=== PATIENT | male | born 1945 | race Caucasian/White ===

== ENCOUNTER → 2017-03-25 | Outpatient (CLI) | payer MEDICARE ==
--- NOTE | 2017-03-25 15:47 | US ---
EXAMINATION TYPE: US kidneys/renal and bladder DATE OF EXAM: 03/25/2017 COMPARISON: NONE CLINICAL HISTORY: Renal Failure N19. EXAM MEASUREMENTS: Right Kidney: 12.8 x 6.3 x 6.0 cm Left Kidney: 13.2 x 6.2 x 5.9 cm Right Kidney: enlarged, there appears to be some parapelvic cysts in addition to hydro, largest cyst measuring 2. 1 x 1.8 x 1.9cm Left Kidney: Severe left-sided hydronephrosis with cortical thinning is noted. Bladder: enlarged, inferior shows irregular area, it is unclear whether this is the prostate or other etiology Patient states he has had surgery on his prostate, but was unsure what type. Bilateral Jets seen: No IMPRESSION: 1. Nodular echogenicity within the posterior inferior urinary bladder may relate to impression from t he prostate gland, however urinary bladder mass is also possible given the submitted images. Direct v isualization is recommended. 2. Moderate right and severe left hydronephrosis with cortical thinning of the left kidney indicating chronicity. Additionally there is trabeculation of the urinary bladder wall and constellation of fin dings may relate to urinary bladder outlet obstruction in this patient with an enlarged and heterogen ous partially visualized prostate gland. A [place] message has been communicated to Gerardo Calhoun MD via the [employer] Result system on 03/25/2017 3:44 PM, Message ID [id number].
== END | disposition home or self-care (01) ==
LOC: RADUSWWP 14:26
PROVIDERS: ATTEND Urology
DX: N13.30 Unspecified hydronephrosis (principal); N32.89 Other specified disorders of bladder
CPT/HCPCS: 76770

== ENCOUNTER → 2017-05-04 | Outpatient (CLI) | payer MEDICARE, OTHER ==
[2017-05-04 11:47] LABS: EKG EKG PERFORMED
[2017-05-04 12:33] LABS: Basophils # (A) 0.1 k/uL (0-0.2); Basophils % (A) 1 %; CH 28.8; CHCM 32.8; Eosinophils # (A) 0.2 k/uL (0-0.7); Eosinophils % (A) 2 %; HCT 38.4 % (39.0-53.0); HDW 3.12; HGB 12.4 gm/dL (13.0-17.5); Luc # (Auto) 0.25; Luc % (Auto) 2; Lymphocytes # (A) 1.9 k/uL (1.0-4.8); Lymphocytes % (A) 16 %; MCH 28.6 pg (25.0-35.0); MCHC 32.4 g/dL (31.0-37.0); MCV 88.2 fL (80.0-100.0); Mean Platelet Volume 6.8; Monocytes # (A) 0.6 k/uL (0-1.0); Monocytes % (A) 5 %; Neutrophils # (A) 9.2 k/uL (1.3-7.7); Neutrophils % (A) 75 %; RBC 4.36 m/uL (4.30-5.90); RDW 13.9 % (11.5-15.5); WBC 12.2 k/uL (3.8-10.6); WBC (Perox) 12.97
[2017-05-04 12:51] LABS: Anion Gap 14 mmol/L; Blood Urea Nitrogen 27 mg/dL (9-20); Calcium 10.4 mg/dL (8.4-10.2); Carbon Dioxide 25 mmol/L (22-30); Chloride 103 mmol/L (98-107); Glucose 100 mg/dL (74-99); Non-African American GFR(MDRD) 43 (>60 ml/min/1.73 sqM); Potassium 4.4 mmol/L (3.5-5.1); Sodium 142 mmol/L (137-145)
== END | disposition home or self-care (01) ==
LOC: LABPAT 11:05
PROVIDERS: ATTEND Urology
DX: Z01.810 Encounter for preprocedural cardiovascular examination (principal); Z01.812 Encounter for preprocedural laboratory examination; I10 Essential (primary) hypertension; E78.5 Hyperlipidemia, unspecified; N39.0 Urinary tract infection, site not specified; R35.0 Frequency of micturition; N40.1 Benign prostatic hyperplasia with lower urinary tract symptoms
CPT/HCPCS: 36415; 80048; 85025; 93005

== ENCOUNTER 2017-05-11 12:50 | Day surgery (SDC) | payer MEDICARE, OTHER ==
[2017-05-04 15:23] VITALS: BMI 27.4
[~2017-05-11 12:50] MED LIST: AMPICILLIN 2,000 MG in SODIUM CHLORIDE 0.9% 100 ML IVPB ONE; DEXAMETHASONE SOD PHOSPHATE 10 MG/ML 1 ML VIAL IV ONE; GENTAMICIN 120 MG in SODIUM CHLORIDE 0.9% 100 ML IVPB ONE; HYDROmorphone 0.5 MG/0.5 ML SYRINGE IVP PRN; MIDAZOLAM 2 MG/2 ML VIAL IV PRN; ONDANSETRON 4 MG/2 ML VIAL IVP ONE
[2017-05-11] MEDS ORDERED: LACTATED RINGERS 1,000 ML IV ONE ×2 (12:59→17:10)
[2017-05-11] MEDS ORDERED: LIDOCAINE 1% 20 ML VIAL (10MG/ML) FOR IV START INTRADERMA ONE (13:00)
[2017-05-11] MEDS ORDERED: MIDAZOLAM 2 MG/2 ML VIAL ONE (16:20)
[2017-05-11] MEDS ORDERED: PROPOFOL 10 MG/ML 20 ML VIAL IV ONE (16:20)
[2017-05-11] MEDS ORDERED: fentaNYL (PF) 50 MCG/ML 2 ML AMP ONE (16:20)
[2017-05-11] MEDS ORDERED: SUCCINYLCHOLINE CHLORIDE 100 MG/5 ML SYR IV ONE (16:20)
[2017-05-11] MEDS ORDERED: ePHEDrine SULFATE/0.9% NACL/PF 50 MG/5 ML SYRINGE IV ONE (16:20)
[2017-05-11] MEDS ORDERED: LIDOCAINE 1% INJ 10MG/ML (20 ML MDV) ONE (16:20)
[2017-05-11] MEDS ORDERED: HYDROcodone/APAP 5-325MG 1 EACH TAB PO PRN ×2 (19:37)
--- NOTE | 2017-05-11 19:44 | P.OP ---
Date of Procedure: 05/11/17 Preoperative Diagnosis: Urinary Retention Secondary to BPH Postoperative Diagnosis: Same Procedure(s) Performed: Cystoscopy, Bipolar Transurethral Resection of Prostate (TURP) Anesthesia: ALYSSAA Surgeon: Gerardo Calhoun Estimated Blood Loss (ml): 200 IV fluids (ml): 1,100 Pathology: other (Prostate tissue fragments) Condition: stable Disposition: PACU Indications for Procedure: The patient underwent a Greenlight laser prostatectomy for urinary retention in 2012. He was recently found to empty his bladder incompletely, and a renal ultrasound shows bilateral hydronephrosis. Cystoscopy reveals persistent prostatic obstruction, and he now comes for resection of the remaining obstructing prostatic tissue. Operative Findings: Persistent complete prostatic occlusion. Description of Procedure: The patient was taken in the operating room and placed in the dorsolithotomy position, The external genitalia was prepped and draped sterilely. The 25- Afghan ACMI resectoscope sheath was introduced into the bladder. The bladder was inspected. Both ureteral orifices were of normal anatomic location and configuration. No tumors or foreign bodies were seen. Examination of the prostate revealed complete obstruction with a bilobar configuration. Within the proximal aspect of the prostatic urethra was a defect from the prior greenlight laser procedure. However, the distal half of the prostate was visually occluded. The prostate was very long, likely 7-8 cm in length. Using the bipolar cutting loop, the lateral lobes were resected down to the surgical capsule. The floor of the prostate was then resected, proximal to the verumontanum. Lastly, any remaining anterior tissue was resected. The prostatic fossa was then carefully examined. The remaining apical tissue was then carefully resected. The resection was carried down to the surgical capsule in all 4 quadrants. A capsular perforation was noted on the right side. The prostatic fossa was then carefully examined, and any areas of bleeding were controlled with electrocautery. Excellent hemostasis was attained. The resectoscope was withdrawn into the bulbous urethra. The external urinary sphincter remained intact. The prostatic fossa was open. The Jesus evacuator was used to remove all prostate chips from the bladder. These were saved and sent for pathologic examination. The resectoscope was removed, and a 22 Afghan, 3-Way Damon catheter was placed. The return was essentially clear. Continuous bladder irrigation was started using 0.9 normal saline. The patient tolerated the procedure well was taken to the recovery room in stable condition.
[2017-05-11 19:45] VITALS: RESP 16
[2017-05-11] MEDS ORDERED: SODIUM CHLORIDE 0.9% IRRIG 3,000 ML BAG IRRIGATION PRN (20:01)
[2017-05-11] MEDS ORDERED: ATORVASTATIN 20 MG TAB PO SCH (22:00)
[2017-05-11] MEDS ORDERED: amLODIPine 10 MG TAB PO SCH (22:00)
[2017-05-11] MEDS: LACTATED RINGERS 1,000 ML IV SCH (22:27)
[2017-05-11] MEDS ORDERED: MAG HYDROX/AL HYDROX/SIMETH 30 ML CUP PO PRN (23:38)
[2017-05-11] MEDS ORDERED: BELLADONNA-OPIUM 16.2-60 MG 1 EACH SUPP RECTAL PRN (23:38)
[2017-05-11] MEDS ORDERED: ACETAMINOPHEN TAB 325 MG TAB PO PRN (23:38)
[2017-05-11] MEDS ORDERED: DEXTROSE 5%-0.45% NACL 1,000 ML IV SCH (23:38)
[2017-05-12] MEDS: DOCUSATE 100 MG CAP PO SCH ×2 (00:38→08:31)
[2017-05-12] MEDS ORDERED: SODIUM CHLORIDE 0.9% IRRIG 3,000 ML BAG IRRIGATION ONE (03:00)
[2017-05-12] MEDS ORDERED: HYDROCHLOROTHIAZIDE 25 MG TAB PO SCH (09:00)
[2017-05-12] MEDS ORDERED: NON-FORMULARY DRUG (Fish Oil/Dha/Epa [Fish Oil 1,200 Mg Fish Oil] 1 EACH) PO SCH (09:00)
[2017-05-12] MEDS ORDERED: ASPIRIN 81 MG PO SCH (09:00)
[2017-05-12] MEDS ORDERED: FERROUS SULFATE 325 MG TAB PO SCH (09:00)
[2017-05-12 10:05] VITALS: BP 132/73; PULSE 65; TEMP 97.5
[2017-05-12] MEDS: LACTATED RINGERS 1,000 ML IV SCH (10:12)
--- NOTE | 2017-05-12 12:34 | P.DS ---
Providers Expected date of discharge: 05/12/17 Attending physician: Gerardo Calhoun Primary care physician: Ambikalilo Grant Hospital Course: Patient underwent a bipolar TURP on the day of admission. The following day, the urine was essentially clear. He was comfortable and denies pain. Continuous bladder irrigation was held and the urine remained clear. He was thus discharged home with the Damon. Procedures: Cysto, TURP on 05/11/2017. Patient Condition at Discharge: Good Plan - Discharge Summary New Discharge Prescriptions: No Action amLODIPine [Norvasc] 10 mg PO HS Hydrochlorothiazide [Hydrodiuril] 25 mg PO DAILY Ferrous Sulfate [Feosol] 325 mg PO DAILY Atorvastatin Calcium [Lipitor] 20 mg PO HS Aspirin [Adult Low Dose Aspirin EC] 81 mg PO Q48H Multivitamins, Thera [Multivitamin (formulary)] 1 tab PO DAILY Fish Oil/Dha/Epa [Fish Oil 1,200 mg Fish Oil] 1 each PO BID Discharge Medication List Aspirin [Adult Low Dose Aspirin EC] 81 mg PO Q48H 05/04/17 [History] Atorvastatin Calcium [Lipitor] 20 mg PO HS 05/04/17 [History] Ferrous Sulfate [Feosol] 325 mg PO DAILY 05/04/17 [History] Fish Oil/Dha/Epa [Fish Oil 1,200 mg Fish Oil] 1 each PO BID 05/04/17 [History] Hydrochlorothiazide [Hydrodiuril] 25 mg PO DAILY 05/04/17 [History] Multivitamins, Thera [Multivitamin (formulary)] 1 tab PO DAILY 05/04/17 [History ] amLODIPine [Norvasc] 10 mg PO HS 05/04/17 [History] Patient Instructions/Handouts: Transurethral Prostatectomy (DC), Damon Catheter Placement and Care (DC), Urinary Leg Bag (GEN) Activity/Diet/Wound Care/Special Instructions: Discharge home with Damon. No strenuous activity. Plenty of po fluids. Hold aspirin. Our office will contact patient regarding F/U. Discharge Disposition: HOME SELF-CARE
== END 2017-05-12 14:14 | disposition home or self-care (01) ==
LOC: OR 12:50 → 3SUR 19:29 → OR 05-12 14:14
PROVIDERS: ATTEND Urology
DX: N40.1 Benign prostatic hyperplasia with lower urinary tract symptoms (principal); N41.0 Acute prostatitis; N13.8 Other obstructive and reflux uropathy; R33.8 Other retention of urine; R35.0 Frequency of micturition; R35.1 Nocturia; N45.2 Orchitis; N45.3 Epididymo-orchitis; N39.0 Urinary tract infection, site not specified; E78.2 Mixed hyperlipidemia; N13.30 Unspecified hydronephrosis; N17.9 Acute kidney failure, unspecified; I10 Essential (primary) hypertension; M19.90 Unspecified osteoarthritis, unspecified site; Z79.82 Long term (current) use of aspirin; Z79.899 Other long term (current) drug therapy; Z88.1 Allergy status to other antibiotic agents; Z88.8 Allergy status to other drugs, medicaments and biological substances; Z87.891 Personal history of nicotine dependence
CPT/HCPCS: 88305; 88342; 88341; 52601; J2250; J1100; J2405; J2001; J3010; J1580; J0290; J0330; J2704

== ENCOUNTER → 2021-09-04 | Outpatient (CLI) | payer MEDICARE ==
--- NOTE | 2021-09-04 08:48 | CT ---
EXAMINATION TYPE: CT hip RT wo con DATE OF EXAM: 09/04/2021 COMPARISON: None. HISTORY: Right hip for surgical planning, right hip pain. CT DLP: 378.50 mGycm Automated exposure control for dose reduction was used. FINDINGS: Localizer shows metallic hardware from bilateral hip arthroplasties. Images obtained show streak artifact from right hip arthroplasty making evaluation suboptimal. [facility] osseous structures somewhat demineralized. Femoral tip position is slightly eccentrically lateral in position. There is metallic cup component without plastic spacer. There is extensive heterotopic oss ification level of the greater trochanter with several ossific bony fragments extending superiorly an d anteriorly. Small vessel arterial calcification suggests chronic medical renal disease. Incidental moderate spurr ing and disc space narrowing in the lower lumbar spine on the localizer. No groin hernia or adenopath y is seen. IMPRESSION: As above.
[2021-09-04 13:46] LABS: Basophils # (A) 0.04 X 10*3/uL (0.00-0.10); Basophils % (A) 0.3 %; Eosinophils # (A) 0.16 X 10*3/uL (0.04-0.35); Eosinophils % (A) 1.3 %; HCT 49.3 % (39.6-50.0); HGB 16.1 g/dL (13.0-17.0); Immature Grans, Automated 0.4 %; Lymphocytes # (A) 1.74 X 10*3/uL (0.90-5.00); Lymphocytes % (A) 14.2 %; MCH 28.9 pg (27.0-32.0); MCHC 32.7 g/dL (32.0-37.0); MCV 88.5 fL (80.0-97.0); Monocytes # (A) 0.77 X 10*3/uL (0.20-1.00); Monocytes % (A) 6.3 %; NRBC Per 100 WBC 0 /100 WBCS (0.0-0.0); Neutrophils # (A) 9.46 X 10*3/uL (1.80-7.70); Neutrophils % (A) 77.5 %; Platelet Count 232 X 10*3/uL (140-440); RBC 5.57 X 10*6/uL (4.40-5.60); RDW 14.5 % (11.5-14.5); WBC 12.22 X 10*3/uL (4.50-10.00)
[2021-09-04 13:48] LABS: Albumin/Globulin Ratio 0.89 (1.60-3.17); Anion Gap 17.2 mmol/L (10.00-18.00); BUN/Creat Ratio 20.15 Ratio (12.00-20.00); Blood Urea Nitrogen 26.2 mg/dL (9.0-27.0); C Reactive Protein 17.5 mg/dL (0.00-0.80); Calcium 10.2 mg/dL (8.7-10.3); Carbon Dioxide 19.8 mmol/L (20.0-27.5); Globulin 4.5 g/dL (1.6-3.3); Non-African American GFR(CKD) 52.6 (60.0-200.0); Potassium 4.1 mmol/L (3.5-5.5); Total Bilirubin 0.7 mg/dL (0.30-1.20); Total Protein 8.5 g/dL (6.2-8.2)
[2021-09-04 15:47] LABS: Erythrocyte Sedimentation Rate 45 mm/Hr (0-20)
== END | disposition home or self-care (01) ==
LOC: RADCTMAIN 07:06
PROVIDERS: ATTEND Orthopaedic Surgery
DX: Z01.818 Encounter for other preprocedural examination (principal); M25.551 Pain in right hip; M51.36 Other intervertebral disc degeneration, lumbar region; Z96.643 Presence of artificial hip joint, bilateral
CPT/HCPCS: 80053; 85025; 85379; 85652; 86140